=== PATIENT | female | born 1985 | race Caucasian/White ===

== ENCOUNTER 2016-06-26 09:25 | Outpatient (CLI) | payer MEDICAID, OTHER ==
[~2016-06-26] VITALS: Ht 162.6 cm; Wt 66.1 kg
[~2016-06-26 09:25] MED LIST: PREN1TAB17 PO
[2016-06-26 09:30] VITALS: Ht 162.6 cm; Wt 66.1 kg
--- NOTE | 2016-06-26 10:31 | RADRPT ---
PROCEDURE: Limited obstetric ultrasound CLINICAL INDICATION: Pain TECHNIQUE: Multiple transverse and longitudinal grayscale images of the pelvis were obtained marinelli sabdominally and transvaginally.. COMPARISON: same day FINDINGS: There is evidence of funneling of the cervix. The cervix length measures 3.2 cm. There is a small amount of fluid within the cervix. There is a single viable intrauterine gestation. Cardiac activity is present with 152 beats per min zuni. There is a breech presentation. The placenta is posterior. There is no evidence for an abruption or placenta previa. There is a normal amount of amniotic fluid with an MADELIN = 11.4 cm. RPTAT: AA IMPRESSION: Cervix length measures 3.2 cm. Evidence of funneling with a small amount of fluid within the cervix. .Jarett Finney MD, MD Date Time Electronically viewed and signed by .Jarett Finney MD, MD on 06/26/2016 10:31 .S/
--- NOTE | 2016-06-26 11:48 | RADRPT ---
PROCEDURE: Ultrasound of the bilateral lower extremity venous system. CLINICAL INDICATION: Bilateral leg pain and swelling, deep venous thrombosis TECHNIQUE: Weiss scale with and without compression, color doppler, spectral doppler of the venous system of the bilateral lower extremities was performed. Venous augmentation maneuvers were utilized . COMPARISON: No prior studies are available for comparison. FINDINGS: RIGHT: Common femoral vein: Patent. Femoral vein: Patent. Popliteal vein: Patent. Calf veins: Patent. No soft tissue abnormalities are identified. LEFT: Common femoral vein: Patent. Femoral vein: Patent. Popliteal vein: Patent. Calf veins: Patent. No soft tissue abnormalities are identified. IMPRESSION: No evidence of a deep vein thrombosis within the bilateral lower extremities. RPTAT: AADD .Dg Capone MD, MD Date Time Electronically viewed and signed by .Dg Capone MD, on 06/26/2016 11:48 .B/
--- NOTE | 2016-06-26 12:23 | QN ---
Documentation Comment 23+wks GA with some pain in the [place] area close to left thigh.No LOF No CTXs +FM No VB NSt reassuring for GA [place] No CTXs Pelvic CXL 3.2 cm No sign of DVT by Ultrasound --->discharge with precuations --->follow up with her PMD --->Patient's questions answered ANNIE TELLES M.D. June 26, 2016 12:23
--- NOTE | 2016-06-26 12:25 | TRIAGE ---
OB Triage Datetime Report Generated by CPN: 06/26/2016 12:24 Datetime: 06/26/2016 11:27 Labor Evaluation Frequency: 0 Monitor Mode: External Heart Rate FHR Baseline Rate: 140 Monitor Mode: External US FHR Baseline Changes: No Baseline Change Variability: Moderate 6-25 bpm Accelerations: 15X15 Decelerations: None Category: Category I Pain Assessment Pain Presence: None/Denies Datetime: 06/26/2016 10:33 Labor Evaluation Frequency: 0 Monitor Mode: External Heart Rate FHR Baseline Rate: 145 Monitor Mode: External US FHR Baseline Changes: No Baseline Change Variability: Moderate 6-25 bpm Accelerations: 15X15 Decelerations: None Category: Category I Pain Assessment Pain Presence: None/Denies Datetime: 06/26/2016 10:09 Time of Arrival: 06/26/2016 09:20 EGA: 23.6 Arrived By: Ambulatory Arrived From: Home Chief Complaint: LEFT GROIN LEG PAIN Movement: Present Contractions: Denies/Absent Rupture of Membranes: Denies Vaginal Bleeding: None Vaginal Discharge: Denies Recent Sexual Intercouse: Denies Abdominal Trauma: Not Applicable Patient Complaints: None Time Provider Notified: 06/26/2016 10:00 Provider Notified: KOKI Initial Plan: CERVICAL LENGHT, MADELIN, DOPPLER LOWER EXTRIMITIES FOR R/O DVT Datetime: 06/26/2016 10:01 Labor Evaluation Frequency: 0 Monitor Mode: External Quality: Mild Pattern: Normal: <= 5 Contractions in 10 Minutes Resting Tone Anita: Relaxed Heart Rate FHR Baseline Rate: 145 Monitor Mode: External US FHR Baseline Changes: No Baseline Change Variability: Moderate 6-25 bpm Accelerations: 15X15 Decelerations: None Category: Category I Datetime: 06/26/2016 09:20 Stage of : OB Triage Maternal Assessment Level of Consciousness: Fully Conscious DTR's/Clonus: DTRs 2+; No Clonus Headache: Denies Breath Sounds, Left: Clear and Equal Breath Sounds, Right: Clear and Equal Nausea/Vomiting: Denies RUQ Epigastric Pain: Denies Temperature Route: Axillary
== END 2016-06-26 12:30 | disposition home or self-care (01) ==
LOC: OBT 09:25 → L-D 09:27 → OBT 12:30
PROVIDERS: ATTEND Obstetrics & Gynecology
DX: O26.892 Other specified pregnancy related conditions, second trimester (principal); R10.2 Pelvic and perineal pain; Z3A.23 23 weeks gestation of pregnancy
CPT/HCPCS: 76815; 76817; 93970; Z7500; G0463